=== PATIENT | male | born 1960 | race Caucasian/White ===

== ENCOUNTER 2023-01-10 21:12 | Outpatient (CLI) | payer BC, SELFPAY | END 2023-01-10 21:13 | disposition home or self-care (01) | LOC: AMB 02-05 10:22 | PROVIDERS: PCP Nurse Practitioner Family; Visit Provider Internal Medicine | DX: A41.9 Sepsis, unspecified organism (principal); J18.9 Pneumonia, unspecified organism | CPT/HCPCS: A0425; A0434 ==